=== PATIENT | female | born 1935 | race Caucasian/White ===

== ENCOUNTER → 2017-05-17 | Emergency (ER) | payer MEDICARE, BC ==
[~2017-05-17] MED LIST: ALIGN4 MG PO; BENICAR40 MG PO; CITRACAL + D M1 EACH PO; CLONAZEPAM0.5 MG PO; COUMADIN2.5 MG PO; COUMADIN5 MG; DETROL2 MG PO; FLAGYL500 MG PO; LEXAPRO10 MG PO; LOMOTIL1 TAB PO; LOPRESSOR12.5 MG/0. PO; MOTRIN400 MG; SYNTHROID100 MCG PO; TYLENOL325 MG PO
== END | disposition disaster alternative care site (69) ==
LOC: GAMB 13:32
DX: R26.9 Unspecified abnormalities of gait and mobility (principal)